=== PATIENT | female | born 1980 | race Caucasian/White ===

== ENCOUNTER 2024-07-27 17:15 | Emergency (ER) | payer OTHER ==
[2024-07-27 17:38] VITALS: BP 153/98; PULSE 103; RESP 19; TEMP 98; BMI 28.3
[2024-07-27] MEDS ORDERED: KETOROLAC TROMETHAMINE 15 MG/ML VIAL ONE (18:40)
[2024-07-27] MEDS: KETOROLAC TROMETHAMINE 15 MG/ML VIAL IVPUSH ONE (18:45)
[2024-07-27 18:47] LABS: BASO % 0.9 % (0-2.0); EOS % 0.7 % (0-4.5); HEMATOCRIT 41.7 % (32.4-45.2); HEMOGLOBIN 13.8 GM/dL (10.7-15.3); LYMPH % 18.8 % (8-40); MCH 27.6 pg (25.7-33.7); MEAN CELL VOLUME 83.8 fl (80-96); MEAN PLT VOLUME 9.1 fl (7.5-11.1); MONO % 7.5 % (3.8-10.2); NEUT % 72.1 % (42.8-82.8); PLATELET COUNT 301 10^3/uL (134-434); RBC 4.98 M/mm3 (3.60-5.2); RDW 13.5 % (11.6-15.6); WHITE BLOOD COUNT 8.3 K/mm3 (4.0-10.0)
[2024-07-27 18:57] LABS: PH,URINE 6.5 (5.0-8.0); URINE APPEARANCE CLEAR; URINE BILIRUBIN NEGATIVE (NEGATIVE); URINE COLOR YELLOW; URINE GLUCOSE (UA) NEGATIVE (NEGATIVE); URINE KETONE NEGATIVE (NEGATIVE); URINE LEUK ESTERASE 1+ (NEGATIVE); URINE NITRITE NEGATIVE (NEGATIVE); URINE PROTEIN NEGATIVE (NEGATIVE); URINE UROBILINOGEN 0.2 mg/dL (0.2-1.0)
[2024-07-27 19:06] LABS: EPI CELLS 10.5 /uL (0-25.1); HYALINE CASTS 0.41 /uL (0-3.1); URINE BACTERIA 47.1 /uL (0-1359); URINE RBC 11.5 /uL (0-23.9)
[2024-07-27 19:28] LABS: POTASSIUM 3.5 mmol/L (3.5-5.1)
[2024-07-27 19:30] LABS: ALBUMIN 3.4 g/dl (3.4-5.0); CALCIUM 9.4 mg/dL (8.5-10.1)
[2024-07-27 19:31] LABS: BLOOD UREA NITROGEN 6.3 mg/dL (7-18)
[2024-07-27 19:34] LABS: BILIRUBIN,TOTAL 0.4 mg/dL (0.2-1); CREATININE 0.6 mg/dL (0.55-1.3); TOT PROT 7.4 g/dl (6.4-8.2)
[2024-07-27 20:08] LABS: HIV INTERPRETATION NEGATIVE (NEGATIVE)
== END 2024-07-27 22:53 | disposition home or self-care (01) ==
LOC: JER 17:15
DX: U07.1 COVID-19 (principal); N20.0 Calculus of kidney; R10.31 Right lower quadrant pain; R30.0 Dysuria; R35.0 Frequency of micturition; R11.0 Nausea; M79.10 Myalgia, unspecified site; R09.81 Nasal congestion; R51.9 Headache, unspecified
CPT/HCPCS: 0241U-QW; 36415; 74177-TC; 80053; 81003; 83690; 84703; 85025; 86803; 87086; 87186; 87389; 99285-25; Q9967